=== PATIENT | female | born 1990 | race Two or more races ===

== ENCOUNTER → 2019-03-15 | Emergency (ER) | payer SELFPAY ==
--- NOTE | 2019-03-15 19:20 | NUR ---
PATIENT WAS ACCIDENTLY REGISTERED BY SAUSAGE SMOKER
== END | disposition home or self-care (01) ==
LOC: ER 19:12
DX: Z53.21 Procedure and treatment not carried out due to patient leaving prior to being seen by health care provider (principal)

== ENCOUNTER 2020-05-22 15:24 | Emergency (ER) | payer MEDICAID, OTHER ==
[~2020-05-22] VITALS: Ht 165.1 cm; Wt 53.5 kg
--- NOTE | 2020-05-22 15:38 | NUR ---
DR Perez at the bedside for MSE.
[2020-05-22 15:49] LABS: *BILIRUBIN,URIN NEGATIVE (NEGATIVE); *BLOOD, URINE NEGATIVE (NEGATIVE); *CLARITY,URINE CLEAR (CLEAR); *COLOR,URINE YELLOW (YELLOW); *KETONES,URINE NEGATIVE (NEGATIVE); *UROBILINOGEN,URINE 0.2 E.U./dl (NORMAL); LEUKOCYTE ESTERASE ,URINE NEGATIVE (NEGATIVE); NITRITE, URINE NEGATIVE (NEGATIVE); UGLUCOSE NEGATIVE (NEGATIVE)
[2020-05-22 15:50] LABS: *URINE HCG, QUAL NEGATIVE (NEGATIVE)
[2020-05-22] MEDS ORDERED: METRONIDAZOLE 500 MG TABLET PO ONE (16:15)
[2020-05-22] MEDS ORDERED: CEFTRIAXONE 500 MG VIAL IM ONE (16:15)
[2020-05-22] MEDS ORDERED: DOXYCYCLINE HYCLATE 100 MG TABLET PO ONE (16:15)
[2020-05-22] MEDS ORDERED: ONDANSETRON ODT 4 MG TAB.RAPDIS SL ONE (16:15)
[2020-05-22] MEDS ORDERED: ONDANSETRON ODT 4 MG TAB.RAPDIS ONE (16:16)
[2020-05-22] MEDS ORDERED: LIDOCAINE HCL 1% 20 ML VIAL ONE (16:16)
[2020-05-22] MEDS ORDERED: DOXYCYCLINE HYCLATE 100 MG TABLET ONE (16:17)
[2020-05-22] MEDS ORDERED: METRONIDAZOLE 500 MG TABLET ONE (16:17)
[2020-05-22] MEDS ORDERED: CEFTRIAXONE 500 MG VIAL ONE (16:17)
[2020-05-22 16:25] VITALS: BP 133/80
--- NOTE | 2020-05-22 16:26 | NUR ---
Patient discharged to home in stable condition. Written and verbal after care instructions given. Patient verbalizes understanding of instructions. Stressed follow up or return to ER for worsening s/s.
[2020-05-22] MEDS ORDERED: LIDOCAINE HCL 1% 20 ML VIAL IJ ONE (16:30)
== END 2020-05-22 16:27 | disposition home or self-care (01) ==
LOC: ER 15:24
DX: R30.0 Dysuria (principal); R35.0 Frequency of micturition; R10.2 Pelvic and perineal pain
CPT/HCPCS: 81001; 84703; 87077; 87086; 87186; 87491; 96372; 99284; J0696; J3490; A4663; Q0162